=== PATIENT | female | born 2005 | race Caucasian/White ===

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

== ENCOUNTER → 2024-02-13 | Outpatient (CLI) | payer OTHER ==
[2024-02-13 14:20] VITALS: BP 111/76; PULSE 82; RESP 16; TEMP 98
--- NOTE | 2024-02-13 14:55 | P.SLEEP ---
History of Present Illness H&P Date: 02/13/24 18-year-old girl, who was referred to me for chronic difficulties with sleep. The patient states that she is unable to generate sleep and once she sleeps, she wakes up frequently choking and gasping for air. She is morbidly obese. She carries a body mass index of 47.6 and she has gained additional 20 pounds over the past 1 year. She has had chronic difficulties with sleeping and she states that she has had issues since the age of 8. Back then, she is to see Dr. Lunsford who has prescribed for her various forms of hypnotics and she stated that sleeping pills does not help her to generate and maintain sleep. She has chronic anxiety and recently her primary care physician has started her on BuSpar. She also has history of depression, used to take Effexor in the past and currently she is off treatment. No feeling of worthlessness. No crying episodes. No agitation. No psychosis. No seizure disorder. No head trauma. No PTSD. No substance abuse. She is living with a boyfriend. 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 She feels quite exhausted on the job. She does not fall asleep not take any naps during the day. No grinding of the teeth. No sleepwalking. No sleep talking. She is a restless sleeper. She watches television and she also drowsiness Internet and she is on social media in bed and she is tells me that this type of activity helped her relax and go to sleep. For now, she is falling asleep sometime between 2 and 4 AM and she gets out of bed at 8 AM in the morning. She feels that she is sleeping more generating around 3 to 4 hours of sleep. No sleep paralysis. No hallucinations. No cataplexy. Her mother has also chronic issues with insomnia. No other medical history otherwise. Review of Systems Constitutional: Reports daytime sleepiness, Reports fatigue Eyes: denies as per HPI, denies blurred vision, denies bulging eye, denies decreased vision, denies diplopia, denies discharge, denies dry eye, denies irritation, denies itching, denies pain, denies photophobia, denies loss of peripheral vision, denies loss of vision, denies tunnel vision/blind spots Ears: deny: decreased hearing, ear discharge, earache, tinnitus Ears, nose, mouth and throat: Reports as per HPI Breasts: absent: as per HPI, change in shape, gynecomastia, masses, nipple discharge, pain, skin changes, swelling Cardiovascular: Reports as per HPI Respiratory: Reports snoring Gastrointestinal: Reports as per HPI Genitourinary: Reports as per HPI Menstruation: Reports as per HPI Musculoskeletal: Reports as per HPI Musculoskeletal: absent: ankle pain, ankle stiffness, ankle swelling, as per HPI, elbow pain, elbow stiffness, elbow swelling, foot pain, foot stiffness, foot swelling, hand pain, hand stiffness, hand swelling, hip pain, hip stiffness, hip swelling, knee pain, knee stiffness, knee swelling, shoulder pain, shoulder stiffness, shoulder swelling, wrist pain, wrist stiffness, wrist swelling Integumentary: Reports as per HPI Neurological: Reports as per HPI Psychiatric: Reports anxiety, Reports depression, Reports insomnia, Reports sleep disturbances Endocrine: Reports as per HPI, Reports fatigue Hematologic/Lymphatic: Reports as per HPI Allergic/Immunologic: Reports as per HPI Past Medical History Past Medical History: No Reported History History of Any Multi-Drug Resistant Organisms: None Reported Past Surgical History: No Surgical Hx Reported Additional Past Surgical History / Comment(s): wisdom teeth extracted x 4 in 2 seperate procedures Past Anesthesia/Blood Transfusion Reactions: No Reported Reaction Past Psychological History: Depression Smoking Status: Vaper Past Alcohol Use History: Occasional Past Drug Use History: Marijuana - Past Family History Father Family Medical History: Coronary Artery Disease (CAD), Hyperlipidemia, Hypertension, Sleep Apnea/CPAP/BIPAP Additional Family Medical History / Comment(s): arthritis (? unknown type), snoring, Restless legs Mother Family Medical History: GERD/Reflux, Hypertension Additional Family Medical History / Comment(s): arthritis (? type), Sinus Headaches, Headaches, Insomnia, Anemia, mental Illness Medications and Allergies Home Medications Medication Instructions Recorded Confirmed Type LORazepam [Ativan] 0.25 - 0.5 mg PO BID PRN 11/10/22 11/10/22 History Allergies Allergy/AdvReac Type Severity Reaction Status Date / Time Penicillins Allergy Rash/Hives Verified 11/10/22 17:11 Physical Exam Vitals: Vital Signs Temp Pulse Resp BP Pulse Ox 02/13/24 14:19 98 F 82 16 111/76 98 Intake and Output 02/12/24 02/13/24 02/13/24 22:59 06:59 14:59 Other: Weight 131.995 kg The patient appeared well nourished and normally developed. Vital signs as documented. Head exam is unremarkable. No scleral icterus or corneal arcus noted. Neck is without jugular venous distension, thyromegaly, or carotid bruits. The patient has a Mallampati class IV and the patient has tongue piercing. Carotid upstrokes are brisk bilaterally. Lungs are clear to auscultation and percussion. Cardiac exam reveals the PMI to be normally sized and situated. Rhythm is regular. First and second heart sounds normal. No murmurs, rubs or gallops. Abdominal exam reveals normal bowel sounds, no masses, no organomegaly and no aortic enlargement. Extremities are nonedematous and both femoral and pedal pulses are normal. Examination of the skin revealed no evidence of significant rashes, suspicious appearing nevi or other concerning lesions. Neurologically, the patient is awake and alert and the patient does not have any focal neurological deficit. Cranial nerves are essentially intact. Assessment and Plan Plan: Chronic insomnia. 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 This is likely chronic comorbid insomnia related to chronic anxiety and depression. No other obvious comorbidities complicating 0 chronic insomnia. Obviously, the patient has issues related to sleep hygiene measures rendering her from generating and maintaining sleep. Possibility of sleep apnea is also likely as the patient has gained considerable mount of weight over the years and the patient has history of snoring and she wakes up choking and gasping for air. Her current body mass index is 47.6. She will need further investigation. Obesity with a BMI of 47.6 Chronic anxiety History of depression, currently not receiving any treatment Plan I had a lengthy discussion with the patient. I explained to the patient principles of good sleep hygiene and principles of cognitive behavioral therapy which involves stimulus control and sleep restriction. Will going to set her go to sleep between midnight and 6 AM in the morning. As such, the patient is to get out of bed early at around 6 AM. Will try to go to bed at around 1130 and 2 assistance with sleep induction, going to start the patient on Seroquel 50 mg at bedtime which should be able to help her to generate and maintain sleep. She will maintain a sleep diary. Once she is able to generate a good 6 hours of sleep, the patient is going to come back to the sleep center to undergo screening polysomnography to evaluate for any underlying sleep breathing disorder. There is an adequate suspicion for an underlying sleep apnea based on her obesity, snoring and Mallampati class IV/crowding of posterior pharynx and sleep fragmentation. Will make further recommendations once the screening polysomnography is completed. She would benefit from counseling. She will benefit from psychiatric evaluation at the later stage. Will continue to follow. Sleep Note - Sleep Data ESS Total: 18 - Sleep Note Sleep Note: Temperature: 98 F Pulse Rate: 82 Respiratory Rate: 16 Blood Pressure: 111/76 SpO2: 98 Height: 5 ft 5.5 in Weight: 131.995 kg BMI: Neck Circumference: 17
== END ==
LOC: 3 N SLEEP 14:12
PROVIDERS: ATTEND Internal Medicine Critical Care Medicine
DX: F51.04 Psychophysiologic insomnia (principal); F41.9 Anxiety disorder, unspecified; E66.9 Obesity, unspecified; F17.290 Nicotine dependence, other tobacco product, uncomplicated; Z86.59 Personal history of other mental and behavioral disorders; Z68.42 Body mass index [BMI] 45.0-49.9, adult; Z88.0 Allergy status to penicillin
CPT/HCPCS: 99211

== ENCOUNTER 2024-03-13 19:46 | Outpatient (CLI) | payer OTHER ==
--- NOTE | 2024-03-22 15:57 | SLS ---
SLEEP STUDY STUDY: Polysomnography. 19-year-old female patient, presented to the office because of excessive fatigue and symptoms of insomnia. She has chronic anxiety and depression, maintained on BuSpar and Effexor. She is also obese. Screening polysomnography was done to rule out the possibility of obstructive sleep apnea. PERTINENT PHYSICAL FINDINGS: Height is 5 feet and 5 inches with a weight of 291 pounds and a body mass index of 47.7. SLEEP ARCHITECTURE: Total recording duration was 430 minutes. Total sleep time was 367 minutes. Sleep efficiency was 85.5%. Latency to sleep onset was 51 minutes. Latency to REM sleep was 148.5 minutes. The sleep architecture was characterized by 2.5% stage I, 52.2% stage II, 25% stage III, and 20.4% REM sleep. RESPIRATORY SUMMARY: The sleep study shows no evidence of any obstructive apneas. There were a total of 14 hypopneas and the reported AHI was 2.3. Obstructive hypopneas were more predominant during REM sleep. OXYGENATION ANALYSIS: The patient's average pulse ox during sleep was 96% with a minimum pulse ox of 83%. This patient spent only 8 minutes of sleep time below pulse ox of 90%. CARDIAC SUMMARY: Average heart rate was 73 with a minimum heart rate of 47 and a maximum heart rate of 155. Rhythm was sinus. There were a total of 48 arousals with a respiratory arousal index of 1.1. Total arousal index was 7.8. PERIODIC LIMB MOVEMENT SUMMARY: No significant periodic limb movement activity was noted. ASSESSMENT: 1. Primary snoring, no evidence of any significant sleep breathing disorder. 2. Sleep-onset insomnia. The patient's sleep latency was delayed up to 51 minutes. Nevertheless, the overall sleep efficiency was 85% and the patient was able to generate more than 360 minutes of sleep during the sleep study. 3. Chronic anxiety/depression. 4. Obesity with a BMI of 47.6. PLAN: 1. No need for CPAP therapy. 2. Continue treating comorbidities including anxiety and depression. The patient is currently on a combination of BuSpar and Effexor. 3. May consider a hypnotic agent, short-acting, for sleep induction. 4. Encourage weight loss. 5. Optimize sleep hygiene measures. 6. Maintain a regular sleep schedule. 7. We will continue to follow. MMODL / IJN: [id number] / [facility]
== END 2024-03-14 05:30 | disposition home or self-care (01) ==
LOC: 3 N SLEEP 19:46
PROVIDERS: ATTEND Internal Medicine Critical Care Medicine
CPT/HCPCS: 95810